=== PATIENT | female | born 1970 | race Caucasian/White ===

== ENCOUNTER 2019-02-04 08:59 | Outpatient (CLI) | payer OTHER | END 2019-02-04 09:06 | disposition home or self-care (01) | LOC: MAMO-SONO 08:59 | DX: Z12.31 Encounter for screening mammogram for malignant neoplasm of breast (principal); Z87.898 Personal history of other specified conditions; N60.11 Diffuse cystic mastopathy of right breast; N60.12 Diffuse cystic mastopathy of left breast; N60.19 Diffuse cystic mastopathy of unspecified breast ==

== ENCOUNTER 2021-01-22 18:28 | Emergency (ER) | payer OTHER ==
[~2021-01-22] VITALS: Ht 162.6 cm; Wt 104.3 kg
[2021-01-22] MEDS ORDERED: FORTAMET500 MG PO (18:43)
[2021-01-22] MEDS ORDERED: KAPSPARGO SPRI100 MG PO (18:43)
== END 2021-01-22 22:55 | disposition home or self-care (01) ==
LOC: ER 18:28
DX: M79.642 Pain in left hand (principal)